=== PATIENT | male | born 1960 | race Caucasian/White ===

== ENCOUNTER 2023-02-14 09:37 | Observation (INO) ==
--- NOTE | 2023-02-08 09:09 | Anesthesiology Consultation ---
Date of Service February 08, 2023 Assessment & Plan (1) Encounter for pre-operative examination: Chart Review Chart Review: Acceptable Risk for Surgery and Patient NOT seen in Pre Admission Testing Consults Requested none History Surgery Operation Date: 02/14/23 11:30 Proposed Procedures p Left Unicompartment Knee Arthroplasty versus Left Total Knee Arthroplasty - Santo Krishnamurthy, Height/Weight Height: 6 ft Weight: 99.79 kg Allergies Allergy/AdvReac Type Severity Reaction Status Date / Time Sulfa (Sulfonamide AdvReac Mild Gastrointestinal Verified 02/08/23 07:54 Antibiotics) Upset Medications Home Medications Medication Instructions Recorded Confirmed Last Taken Zn-pyg cgyv-jvuzeq-ccp palmet 1 cap PO QAM 10/18/22 02/08/23 11/15/22 05:00 capsule atenolol 25 mg tablet 12.5 mg PO HS 10/18/22 02/08/23 12/05/22 21:00 atorvastatin 10 mg tablet (Lipitor) 10 mg PO HS 10/18/22 02/08/23 12/05/22 21:00 cetirizine 10 mg tablet (Zyrtec) 10 mg PO QAM 10/18/22 02/08/23 12/05/22 05:00 citalopram 20 mg tablet 20 mg PO HS 10/18/22 02/08/23 12/05/22 05:00 fluticasone propionate 50 2 spray intranasal DAILY PRN 10/18/22 02/08/23 Unknown mcg/actuation nasal Allergy Symptoms spray,suspension glucosamine-chondroitin 250 mg-200 2 tab PO QAM 10/18/22 02/08/23 11/15/22 05:00 mg tablet (Osteo Bi-Flex) Past Medical History Medical History BPH (benign prostatic hyperplasia) IgA deficiency Prediabetes HTN (hypertension) controlled, stable per pt Hyperlipidemia Depression GERD (gastroesophageal reflux disease) controlled, stable per ptt Hx of Lyme disease treated 10 yrs ago, denies complications, myalgias, arthralgias, fever, palpitations all resolved after treatment History of COVID-19 2020-flu like symptoms-denies hospitalization-resolved Exercise / Class Metabolic Activity II 4-5 Yardwork/Stairs/Walk up hill Past Family History Family History Other No family history of adverse response to anesthesia Past Surgical History Surgical History History of partial knee replacement right History of esophagogastroduodenoscopy (EGD) Hx of colonoscopy Hx of wisdom tooth extraction History of tonsillectomy and adenoidectomy History of bunionectomy of right great toe Hx of bilateral cataract extraction 12/06/22: Right uni knee: SAB with adductor and sedation. Past Anesthesia History No Hx of Anesthesia Complications and No Family Hx of Anesthesia Complications History of PONV No Hx of PONV and No Hx of Motion Sickness Social History Smoking Status: Former smoker tobacco type: cigarettes Smoking cigarettes per day: quit ~1990 Do You Dip or Chew Tobacco: No Smoking End Date: 1989 Hx Alcohol Use: Yes Alcohol type: beer and wine alcohol intake frequency: a few times a month Hx Substance Use: No substance use type: does not use Testing Laboratory Results Laboratory Tests 01/18/23 09:28 WBC 4.32 L Hgb 12.8 L Hct 38.3 L Plt Count 187 PT 11.7 INR 1.1 APTT 26.3 Sodium 139 Potassium 4.7 Chloride 107 Carbon Dioxide 28 BUN 19 Creatinine 0.97 Glucose 100 H Electrocardiogram Date: 10/26/22 DICTATED BY: Tk Malloy MD Test Reason : Blood Pressure : / mmHG Vent. Rate : 051 BPM Atrial Rate : 051 BPM P-R Int : 202 ms QRS Dur : 092 ms QT Int : 470 ms P-R-T Axes : 034 037 042 degrees QTc Int : 433 ms Sinus bradycardia Otherwise normal ECG When compared with ECG of 11-OCT-2012 06:55, No significant change was found Confirmed by Tk Malloy ([id number]) on 10/26/2022 4:06:57 PM
[~2023-02-14 09:37] MED LIST: ACETAMINOPHEN 500 MG TAB PO SCH; BUPIVACAINE 0.5 % 5 MG/1 ML PF 10ML VIAL ONE; FAMOTIDINE 20 MG TAB PO SCH; GABAPENTIN 600 MG DOSE PO SCH; LR 500ML BOLUS, THEN 15ML/HR IV SCH; LR 60ML/HR IV SCH; ORTHO JOINT MIX INFIL SCH; ROPIVACAINE 0.5% 5 MG/ML 30 ML VIAL ONE; TRANEXAMIC ACID 1,000 MG **IV Intra-op IV SCH; TRANEXAMIC ACID 1,000 MG **IV Pre-op IV SCH; ceFAZolin 2000MG 2,000 MG/15 ML SYR IV SCH; dexAMETHasone 4 MG TAB PO SCH
--- NOTE | 2023-02-14 10:16 | History & Physical Bridge Note ---
Date of Service February 14, 2023 History & Physical Bridge Note I have examined the patient, reviewed the History & Physical and in the interval since the performance of the History & Physical I have noted the following changes of clinical significance: no changes noted
[2023-02-14] MEDS ORDERED: ePHEDrine sulfate 50 MG/ML AMP IV PRN (10:50)
[2023-02-14] MEDS ORDERED: ATROPINE SULFATE 0.1 MG/ML 10ML SYR IV PRN (10:50)
[2023-02-14] MEDS ORDERED: fentaNYL citrate PF 100 MCG/2 ML VIAL IV PRN (10:50)
[2023-02-14] MEDS ORDERED: ONDANSETRON INJ 2 MG/ML 2 ML VIAL IV PRN ×2 (10:50→14:41)
[2023-02-14] MEDS ORDERED: ORTHO JOINT ANESTHETIC ONE (10:51)
[2023-02-14] MEDS ORDERED: PROPOFOL IV EMULSION 10 MG/ML 20 ML VIAL IV ONE (10:57)
[2023-02-14] MEDS ORDERED: fentaNYL citrate PF 100 MCG/2 ML VIAL ONE (10:57)
[2023-02-14] MEDS ORDERED: MIDAZOLAM HCL 1 MG/ML 2ML VIAL ONE ×3 (10:58→12:27)
--- OUTSIDE RECORDS SUMMARY | 2023-02-14 11:58 | External Medical Summary | Summary of Care ---
Author Name Unknown Organization [facility] Address [address] [place] [address] Phone [phone] Care Team Providers Care Pile Driver Name Role Phone Jose Reagan MD Primary Care Provider +1- [phone] Reason for Visit * Reason Comments eRx-Medication Refill Encounter Details Date Type Department Care Team (Late st Contact Info) Description 02/07/2023 Refill [facility] [place] [address] [place] [address] Jose Reagan MD [address] [place] [address] Chronic rhinitis Allergies Active Allergy Reactions Criticality Noted Date Comments Sulfa Antibiotics Nausea/vomiting,Othe r (Please comment) 11/25/2001 Nausea/Vomiting, fever documented as of this encounter (statuses as of 02/07/2023) Medications Medication Sig Dispensed Refills Start Date End Date Status SAW PALMETTO COMPLEX PO CAPSIndications:R outine medical exam USE DIRECTED 0 07/05/2011 Active AYR SALINE NASAL NETI RINSE 1.57 G NA PACKIndications:C hronic rhinitis use 1 packet a day as directed 1 Kit 3 04/04/2014 Active ZYRTEC ALLERGY 10 MG PO TABSIndications:C hronic rhinitis 1 TABLET DAILY 0 04/04/2014 Activ e Glucosamine Chond Complex/MSM Oral Tablet 0 09/10/2019 Active Atorvastatin Calcium 40 MG Oral Tablet (Lipitor)Indicati ons:Dyslipidemia Take by mouth 1 Tablet in the morning. 90 Tablet 3 12/28/2021 Active Montelukast Sodium 10 MG Oral Tablet (Singulair) Take 1 Tablet by mouth in the morning. 90 Tablet 3 04/02/2022 Active Atenolol 25 MG Oral Tablet (Tenormin) Take 1 Tablet by mouth in the morning. 90 Tablet 3 08/30/2022 Active Additional Information Patient taking differently: 12.5 mgOral Daily(AM), Reported on 11/01/2022 Citalopram Hydrobromide 20 MG Oral Tablet (CeleXA)Indicatio ns:Shakiness,Grie f reaction,Stress TAKE 1 TABLET EVERY MORNING 90 Tablet 3 11/24/2022 Active Omeprazole 20 MG Oral Capsule Delayed Release (PriLOSEC)Indicat ions:Gastroesopha geal reflux disease without esophagitis TAKE 1 CAPSULE EVERY MORNING 90 Capsule 3 12/15/2022 Active Fluticasone Propionate 50 MCG/ACT Nasal Suspension (Flonase)Indicati ons:Chronic rhinitis USE 2 SPRAYS IN EACH NOSTRIL IN THE MORNING 48 g 2 02/07/2023 Active Fluticasone Propionate 50 MCG/ACT Nasal Suspension (Flonase)Indicati ons:Chronic rhinitis Administer into each nostril 2 Sprays in the morning. 48 g 3 12/28/2021 02/08/20 23 Discontinued documented as of this encounter (statuses as of 02/07/2023) Active Problems Problem Noted Date Diagnosed Date HTN, goal below 130/80 11/01/2022 Prediabetes 07/22/2020 Overview: Per Prediabetes protocol History of Lyme disease 12/07/2019 IgA deficiency 07/28/2015 Vitiligo 08/22/2013 Chronic rhinitis 07/05/2012 Pulsatile tinnitus 07/05/2012 Dyslipidemia, goal LDL below 100 02/17/1996 documented as of this encounter (statuses as of 02/07/2023) Resolved Problems Problem Noted Date Diagnosed Date Resolved Date Preop examination 03/10/2017 03/10/2017 Shakiness 03/23/2016 03/10/2017 Grief reaction 03/23/2016 03/10/2017 Cutaneous skin tags 09/30/2014 03/10/20 17 Maria De Jesus nodes (DJD hand) 08/22/2013 BPH with obstruction/lower u rinary tract symptoms 08/22/2013 11/01/2022 Special screening for malign ant neoplasm of prostate 08/22/2013 04/04/2015 Overweight (BMI 25.0-29.9) 04/19/2013 1 05/11/2016 Overview: BMI= 27.44 04/19/13 Chest pain 10/17/2012 04/04/2015 Palpitations 10/11/2012 03/10/2017 Overweight with body mass in dex (BMI) 25.0-29.9 08/29/2012 03/10/2017 Overview: bmi= 27.11 08/29/12 Arthralgia of multiple joints 08/29/2012 12/05/2018 DJD (degenerative joint disease) 08/29/2012 09/30/2014 Dizziness 07/05/2012 09/30/2014 Routine medical exam 07/05/2012 017 Obstipation 01/05/2012 03/10/2017 Overweight (BMI 25.0-29.9) 07/05/2011 1 05/11/2016 Overview: bmi= 26.20 07/05/11 Special screening for malign ant neoplasm of prostate 07/05/2011 04/04/2015 Carcinoid syndrome 07/05/2011 6 Diverticulosis of colon 07/05/201111/13 Ventricular premature contractions 07/05/2011 03/10/2017 Palpitations 02/11/2011 07/05/2011 Carcinoid syndrome 02/01/2011 2 Abdominal pain, epigastric 01/28/2011 0 07/05/2011 Diverticulosis of colon 01/28/201106/13 Umbilical hernia 01/28/2011 09/30/2014 Ventricular premature contractions 01/20/2011 07/05/2011 Overweight, BMI 26.22 12/28/10 12/28/2010 03/10/2017 Acute serous otitis media 05/28/2010 07 / Special screening for malign ant neoplasms, colon 05/28/2010 09/30/2014 Screening for prostate cancer 05/28/2010 07/05/2011 Hearing loss 12/29/2009 09/30/2014 Chronic rhinitis 10/09/2009 09/30/2014 Dysfunction of eustachian tube 10/09/2009 09/30/2014 Otalgia 10/09/2009 09/30/2014 Pulsatile tinnitus 10/09/2009 5 Family history of malignant neoplasm of prostate 06/01/2007 09/30/2014 ADVANCE DIRECTIVE INFORMATION 01/28/2005 09/30/2014 Overview: INSTRUCTED PT TO BRING COPY IN FOR CHART Other seborrheic keratosis 06/12/2004 0 09/30/2014 BPH with obstruction/lower u rinary tract symptoms 06/12/2004 08/22/2013 Esophageal stricture 06/12/2004 015 Esophageal reflux 04/13/2002 01/05/2012 Dyslipidemia, goal to be determined 04/13/2002 06/04/2009 VITELIGO 04/13/2002 08/22/2013 SBE (subacute bacterial endo carditis) prophylaxis candidate 04/13/2002 01/28/2009 ROUTINE MEDICAL EXAM 04/13/2002 013 Screening for prostate cancer 04/13/2002 05/22/2008 Overview: Resolved per Screening Diagnosis Protocol #6 GANGLION, RIGHT PALMAR 08/01/200009/30 Palpitations 06/01/2007 Mitral valve disorder 2007 DISC DIS ELE-UAY-SAQW 2014 INFORMATION 06/12/2004 NONSPECIF SKIN ERUPT NEC 03/2004 LUMBAGO 09/30/2014 UNILAT INGUINAL HERNIA 09/30 Mitral valve regurgitation 0 09/30/2014 documented as of this encounter (statuses as of 02/07/2023) Immunizations Name Administration Dates Next Due COVID-19 mRNA, LNP-s, No Pre serve, 2-Dose Series (Moderna) 07/03/2020,05/29/2020 COVID-19, mRNA, LNP-s, PF, B ooster, 100mcg/0.5mg (Moderna) 02/18/2021 SEASONAL INFLUENZA, PF, 6 M & Above, IM , (FLULAVAL or FLUZONE) 01/27/2023,12/17/2021,12/08/2020,12/06,12/05/2018,02/03/2018,12/30/2016 Seasonal Influenza, Quadriva lent, No Preserve, IM 02/03/2016,01/16/2015 02/02/2017 Seasonal Influenza, Split, I IV3, With Preserve, Inj 02/25/2014,12/08/2012,12/07/2010,12/29,12/05/2008,03/06/2008,01/30/2007 TD, Preservative Free 12/08/2020 TDAP (age 11 and older)(Adacel) 01/05/2010 Zoster Vaccine Recombinant (Shingrix) 04/17/2019,12/05/2018 documented as of this encounter Social History Tobacco Use Types Packs/Day Years Used Date Smoking Tobacco: Former Cigarettes 1 10 Q uit: 02/16/1991 Passive Smoke Exposure: Never Smokeless Tobacco: Never Alcohol Use Standard Drinks/Week Comments Yes 0 (1 standard drink = 0.6 oz pure alcohol) 3-4 beers per weekend- cutting back, occ wine in evening PHQ-2 Answer Date Recorded PHQ-2 Score 0 12/07/2019 Hunger Vital Sign Answer Date Recorded Within the past 12 months, y ou worried that your food would run out before you got the money to buy more. Never true 08/27/19 23 Within the past 12 months, t he food you bought just didn't last and you didn't have money to get more. Never true 08/26/2022 Sex and Gender Information Value Date Recorded Sex Assigned at Male 12/05/2018 7:54 AM EDT Gender Identity Male 12/05/2018 7:54 AM EDT Sexual Orientation Straight 12/05/2018 7: 54 AM EDT Job Start Date Occupation Industry Not on file Not on file Not on file documented as of this encounter Miscellaneous Notes * Telephone Encounter - Alma Delia Whitt, [facility] - 02/07/2023 4:40 PM ESTSigned Prescriptions: Disp Refills Fluticasone Propionate 50 MCG/ACT Nasal Contreras*48 g 2 Sig: USE 2 SPRAYS IN EACH NOSTRIL IN THE MORNINGAuthorizing Provider: JOSE REAGAN User: ALMA DELIA WHITT documented in this encounter Plan of Treatment Upcoming Encounters Date Type Department Care Team (Late st Contact Info) Description 03/23/2023 7:40 AM EST Office Visit [facility] [address] [place] [address] Jose Reagan MD [address] [place] [address] Scheduled Procedures Name Priority Associated Diagnoses Date/Ti me COLONOSCOPY FLEXIBLE PROXIMAL DIAGNOSTIC Recall History of colon polyps Health Maintenance Due Date Last Done Comments HIV Screening 1973 Albumin/Creatinine Ratio 1976 Hepatitis C Screening 1976 Depression Screening 12/06/2020 12/07/2019, 10/01/19 15 COVID-19 Vaccine ( season) 2022 02/18/2021, 07/03/2020, 05/29/2020 GFR 05/13/2023 05/12/2022, 03/2020, 07/01/2020, Additional history exists HbA1c 05/13/2023 05/12/2022, 03/2020, 07/01/2020 COLONOSCOPY-EVERY 3 YRS AGES 18-100 07/10/2024 07/10/2021, 07/10/2021, 02/24/2011, Additional history exists Lipid Panel 05/13/2027 05/12/2022, 03/2020, 07/01/2020, Additional history exists DTaP,Tdap,and Td Vaccines (3 - Td or Tdap) 12/08/2030 12/08/2020, 01/05/2010, 07/29/2001, Additional history exists Zoster Vaccines Completed 04/17/2019, 12/05/2018 Colonoscopy Discontinued 07/10/2021, 06/13, 02/24/2011, Additional history exists Colorectal Cancer Screening Discontinued Influenza Vaccine (FLU shot) Completed 01/27/2023, 12/17/2021, 12/08/2020, Additional history exists Cologuard Discontinued Fecal Occult Blood Test Discontinued GARDASIL-HPV IMMUNIZATION SERIES Aged Out No longer eligible based on patient's age to complete this topic Hepatitis B Aged Out No longer eligi ble based on patient's age to complete this topic MENINGOCOCCAL (MENACTRA/MENVEO) Aged Out No longer eligible based on patient's age to complete this topic Pneumococcal Vaccine: Pediatrics (0 to 5 Years) and At-Risk Patients (6 to 64 Years) Aged Out No longer eligible based on patient's age to complete this topic Sigmoidoscopy Discontinued documented as of this encounter Medical Devices Implanted Type Area Boss Miner Device Identifier Shelf Expiration Date Model / Serial / Lot Lens Intraoc 16.5 - [id number] - [id number] Implanted:Qty: 1 on 03/22/2017 by Bandar Cedeño MD at OR [facility] Right: Eye BAUSCH & LOMB 05/11/2021 [id number] / [id number] / [id number] Lens Intraoc 16.5 - [id number] - [id number] Implanted:Qty: 1 on 03/29/2017 by Bandar Cedeño MD at OR [facility] Left: Eye BAUSCH & LOMB 07/11/2021 [id number] / [id number] / [id number] documented as of this encounter Visit Diagnoses Diagnosis Chronic rhinitis documented in this encounter Advance Directives Latest Code Status on File Code Status Date Activated Date Inactivated Comments Full Code 03/29/2017 9:22 AM 03/29/2017 3:55 PM This order reflects the patients wishes and were consensually agreed upon. Code Status History Code Status Date Activated Date Inactivated Comments Full Code 03/22/2017 6:23 AM 03/22/2017 12:51 PM This o rder reflects the patients wishes and were consensually agreed upon. Care Teams Pile Driver Relationship Specialty Start Date End Date Oesterling, Jose R, MD [address] [facility] [place] [address] PCP - General Family Medicine 08/03/17 documented as of this encounter
--- OUTSIDE RECORDS SUMMARY | 2023-02-14 11:58 | External Medical Summary | Summary of Care ---
Author Name Unknown Organization [facility] Address [address] [place] [address] Phone [phone] Care Team Providers Care Pinion And Wheel Truer Name Role Phone Jose Velasquez MD Primary Care Provider +1- [phone] Reason for Visit * Reason Onset Date Comments Medication Administration 01/27/2023 Flu an d/or Pneumo Inj Encounter Details Date Type Department Care Team (Late st Contact Info) Description 01/27/2023 9:00 AM EST Immunization Ancillary [facility] [address] [place] [address] [place], Flu [facility] [address] [place] [address] Need for prophylactic vaccination and inoculation against influenza* Allergies Active Allergy Reactions Criticality Noted Date Comments Sulfa Antibiotics Nausea/vomiting,Othe r (Please comment) 11/25/2001 Nausea/Vomiting, fever documented as of this encounter (statuses as of 01/27/2023) Medications Medication Sig Dispensed Refills Start Date End Date Status SAW PALMETTO COMPLEX PO CAPSIndications:Rou jovanni medical exam USE DIRECTED 0 07/05/2011 Ac tive AYR SALINE NASAL NETI RINSE 1.57 G NA PACKIndications:Chr onic rhinitis use 1 packet a day as directed 1 Kit 3 04/04/2014 Active ZYRTEC ALLERGY 10 MG PO TABSIndications:Chr onic rhinitis 1 TABLET DAILY 0 04/04/2014 Active Glucosamine Chond Complex/MSM Oral Tablet 0 09/10/2019 Active Fluticasone Propionate 50 MCG/ACT Nasal Suspension (Flonase)Indication s:Chronic rhinitis Administer into each nostril 2 Sprays in the morning. 48 g 3 12/28/2021 Active Atorvastatin Calcium 40 MG Oral Tablet (Lipitor)Indication s:Dyslipidemia Take by mouth 1 Tablet in the [...] 11/01/2022 Citalopram Hydrobromide 20 MG Oral Tablet (CeleXA)Indications :Shakiness,Grief reaction,Stress TAKE 1 TABLET EVERY MORNING 90 Tablet 3 11/24/2022 Active Omeprazole 20 MG Oral Capsule Delayed Release (PriLOSEC)Indicatio ns:Gastroesophageal reflux disease without esophagitis TAKE 1 CAPSULE EVERY MORNING 90 Capsule 3 12/15/2022 Active documented as of this encounter (statuses as of 01/27/2023) Active Problems Problem Noted Date Diagnosed Date HTN, goal below 130/80 11/01/2022 Prediabetes 07/22/2020 Overview: Per Prediabetes protocol History of Lyme disease 12/07/2019 IgA deficiency 07/28/2015 Vitiligo 08/22/2013 Chronic rhinitis 07/05/2012 Pulsatile tinnitus 07/05/2012 Dyslipidemia, goal LDL below 100 02/17/1996 documented as of this encounter (statuses as of 01/27/2023) Resolved Problems Problem Noted Date Diagnosed Date [...] 12/28/2010 03/10/2017 Acute serous otitis media 05/28/2010 Special screening for malign ant neoplasms, colon [...] 06/01/2007 Mitral valve disorder 2007 DISC DIS XXI-QDH-KNSG 2014 INFORMATION 06/12/2004 NONSPECIF SKIN ERUPT NEC 03/2004 LUMBAGO 09/30/2014 UNILAT INGUINAL HERNIA 09/30 Mitral valve regurgitation 0 09/30/2014 documented as of this encounter (statuses as of 01/27/2023) Immunizations Name Administration Dates Next Due COVID-19 [...] on file documented as of this encounter Patient Instructions * Patient Instructions* Michael Jean RN - 01/27/2023 9:03 AM EST ~~PATIENT INSTRUCTIONS FOR FLU SHOT~~ Possible side effects of influenza vaccine, (flu shot), are usually mild and include: 1. Soreness or redness at injection site 2. Low grade fever 3. Body aches You may use Tylenol/Acetaminophen as needed for these symptoms. LET YOUR DOCTOR KNOW IMMEDIATELY IF YOU HAVE DIFFICULTY BREATHING OR SWALLOWING, EXPERIENCE ITCHINGOF FEET OR HANDS, HAVE SWELLING OF EYES, FACE OR INSIDE OF NOSE. documented in this encounter Progress Notes * Michael Jean RN - 01/27/2023 9:03 AM EST PRE - ADMINISTRATION DOCUMENTATION Are you experiencing any cold symptoms or fever? No Have you had Guillain-Dixmont Syndrome (an illness that causes paralysis) within the last 6 weeks? No Have you had the flu shot in the past? YES Have you ever had a reaction to the flu shot? No Michael Jean RN, 01/27/2023 9:03 AM Immunization Administration Documentation Time Out Procedure Performed: Yes Patient Identified (Ask Name/Date of ): Yes Does the patient have a fever greater than 101 degrees today? No Patient allergic to latex? No VFC Stock: No Immunization(s) verified: Yes, Immunization Name: Flu, VIS Sheet(s) given: Yes Verified Side and Site: Yes Verified Shot(s) with Parent(s)/Patient: Yes documented in this encounter Plan of Treatment Upcoming Encounters Date Type Department Care Team (Late st Contact Info) Description 03/23/2023 7:40 AM EST Office Visit [facility] [address] [place] [address] Jose Velasquez MD [address] [place] [address] Scheduled Procedures Name Priority Associated Diagnoses Date/Ti [...] this encounter Medical Devices Implanted Type Area Director Of Philanthropy Device Identifier Shelf Expiration Date Model / Serial / Lot Lens Intraoc 16.5 - [id number] - [id number] Implanted:Qty: 1 on 03/22/2017 by Bandar Cedeño MD at OR [facility] Right: Eye BAUSCH [employer] LOMB 05/11/2021 [id number] / [id number] / [id number] Lens Intraoc 16.5 - [id number] - [id number] Implanted:Qty: 1 on 03/29/2017 by Bandar Cedeño MD at OR [facility] Left: Eye BAUSCH & LOMB 07/11/2021 [id number] / [id number] / [id number] documented as of this encounter Visit Diagnoses Diagnosis Need for prophylactic vaccination and inoculation against influenza- Primary documented in this encounter Advance Directives Latest [...] and were consensually agreed upon. Care Teams Pinion And Wheel Truer Relationship Specialty Start Date End Date Jose Velasquez MD [address] [place] [address] PCP - General Family Medicine 08/03/17 documented as of this encounter
--- NOTE | 2023-02-14 12:46 | Operative Report ---
PG Post Operative Report Pre & Post Diagnosis Operation Date: 02/14/23 11:15 Pre-Op Diagnosis: Left Knee Osteoarthritis Post-Op Diagnosis: Left Knee Osteoarthritis I identified the patient and participated in the time-out.: Yes Procedure Operation Date: 02/14/23 11:15 Actual Procedures p Left Unicompartmental Knee Arthroplasty (Left) - Santo Krishnamurthy DO Surgeon Santo Krishnamurthy DO Finishing Trimmer Santo Diego PA-C and Matheus Donovan PA-C Estimated Blood Loss 30 Findings Consistent with Post-Op Diagnosis Specimens Left femoral tibial bone Description of Procedure Implants used: I used a Amarilis persona unicompartmental knee arthroplasty with a size 6 femoral component, a size F tibial component, and a size 8 polyethylene insert. All components were cemented with Biomet cement. On February Wali arrived at [facility] for the above procedure. He was seen in the preoperative holding area and the operative extremity was identified and signed. He was given a preoperative antibiotic and a spinal anesthetic. He was taken back the operating room and laid on the table in supine position. He was given basic sedation. The left knee was prepped and draped in sterile fashion. A timeout was done. The patient and the operative extremity was properly identified. A longitudinal incision was made directly over the patella. Dissection was taken down through the fascia. A small midvastus arthrotomy was used. A small portion of the fat pad was excised and the medial retinaculum was released. The knee was then flexed. There was no arthritis in the patellofemoral joint or the lateral compartment. The ACL was intact. There was severe osteoarthritis in the medial compartment. A decision was made to proceed with a partial knee replacement. An external tibial guide was placed. 4 mm was resected off the tibial plateau. The knee was then brought to full extension. A distal femoral cutting block was placed. The distal femur was then resected. The knee was then flexed. A size 6 cutting block seem to be the best fit. This cutting block was then pinned into place. 2 drill holes were made. Posterior and chamfer cuts were made. The cutting block was then removed. The medial meniscus was then removed. The proximal tibia was exposed. The tibia measured to be a size F. The tibial keel was then punched and 2 drill holes were placed. The trial femoral component was then impacted in the place. A size 8 mm polyethylene insert was then trialed. The knee was brought through full range of motion and felt to be stable. All trial components were then removed. The final size F tibial component, the size 6 femoral component were cemented into place with Palacos cement. Once cement had dried, several different polyethylene inserts were trialed and a size 8 seem to get the best fit. The final size 8 implant was then snapped into place. The knee was brought through full range of motion and felt to be stable. The surrounding soft tissues were injected with 60 cc of an orthopedic pain control cocktail. The tourniquet was deflated. Hemostasis was obtained. The midvastus arthrotomy was closed with #1 Vicryl suture. Skin was closed with 2-0 Vicryl, 3 oh V-Loc suture, and justin. He was then placed in a soft compressive dressing. He was then transferred to a hospital bed. He was taken to the postanesthesia care unit in stable condition. He tolerated the procedure well. Santo Keller PA-C and Matheus Donovan PA-C were present for the entire procedure. They were critical for patient positioning, prepping, draping, retraction exposure, wound closure and application of sterile dressing. I attest to the content of the Intraoperative Record and any orders documented therein. Any exceptions are noted below.
[2023-02-14] MEDS ORDERED: ePHEDrine sulfate 50 MG/5 ML SYR ONE (12:50)
--- NOTE | 2023-02-14 13:27 | Anesthesiology Progress Note ---
Date of Service February 14, 2023 Anesthesia Post Procedure Vital Signs Vital Signs: Temp Pulse Pulse Resp BP BP Pulse Ox 02/14/23 13:20 61 13 139/81 94 02/14/23 13:10 60 14 144/79 H 98 02/14/23 13:00 97.9 F 66 16 131/72 99 02/14/23 10:11 98.1 F 58 L 20 142/79 H 95 O2 Del Method O2 Flow Rate 02/14/23 13:20 Oxymask 4 02/14/23 13:10 Oxymask 4 02/14/23 13:00 Oxymask 6 02/14/23 10:11 Room Air Transfer of Care Handoff Completed per policy Notes Mental Status: alert / awake / arousable and participated in evaluation Patient Amnestic to Procedure: Yes Nausea / Vomiting: adequately controlled Pain: adequately controlled Airway Patency, RR, SpO2: stable & adequate BP & HR: stable & adequate Hydration State: stable & adequate Neuraxial Anesthesia: was administered and sensory block is resolving Anesthetic Complications: no major complications apparent and Pt Satisfied with anesthetic care
--- NOTE | 2023-02-14 13:45 | XRay Report ---
XR knee LT 1 or 2V routine CLINICAL HISTORY: Surgical Post Op COMPARISON STUDY: None. FINDINGS: Status post a left knee medial unicondylar prosthesis. The hardware appears intact. No frac ture or dislocation. Skin justin are in place. IMPRESSION: Status post a left knee medial unicondylar prosthesis. No evidence for hardware complica tion. ACT 112: Negative or not required by law. Electronically signed by: Matthew Walters M.D. 02/14/2023 1:44 PM
[2023-02-14] MEDS ORDERED: bisacodyL 10 MG SUPP PR PRN (14:41)
[2023-02-14] MEDS ORDERED: SODIUM CHLORIDE 0.9% 1,000 ML IV SCH (14:41)
[2023-02-14] MEDS ORDERED: oxyCODONE HCL IR 5 MG TAB (IMMEDIATE RELEASE) PO PRN (14:41)
[2023-02-14] MEDS ORDERED: traMADol HCL 50 MG TABLET PO PRN (14:41)
[2023-02-14] MEDS ORDERED: HYDROmorphone INJ 0.5 MG/0.5 ML SYR IV PRN (14:41)
[2023-02-14] MEDS ORDERED: MAGNESIUM HYDROXIDE SUSP 30 ML UDC PO PRN (14:41)
[2023-02-14] MEDS ORDERED: METOCLOPRAMIDE HCL INJ 5 MG/ML 2 ML VIAL IV PRN (14:41)
[2023-02-14] MEDS ORDERED: NALOXONE HCL 0.4 MG/1 ML VIAL/CARP IV PRN (14:41)
[2023-02-14] MEDS: ACETAMINOPHEN 500 MG TAB PO SCH ×2 (15:12→22:30)
[2023-02-14] MEDS: KETOROLAC TROMETHAMINE 15 MG/ML VIAL IV SCH (18:02)
[2023-02-14] MEDS: ceFAZolin 1000MG 1,000 MG/7.5 ML SYR IV SCH (18:02)
[2023-02-14] MEDS: ASPIRIN 81 MG ECTAB PO SCH (20:48)
[2023-02-14] MEDS: DOCUSATE SODIUM 100 MG CAP PO SCH (20:48)
[2023-02-14] MEDS ORDERED: SENNA 8.6 MG TAB PO SCH (21:00)
[2023-02-14] MEDS ORDERED: ATORVASTATIN 10 MG TAB PO SCH (21:00)
[2023-02-14] MEDS ORDERED: CITALOPRAM 20 MG TAB PO SCH (21:00)
[2023-02-14] MEDS ORDERED: ATENOLOL 25 MG TABLET PO SCH (21:00)
[2023-02-15] MEDS: KETOROLAC TROMETHAMINE 15 MG/ML VIAL IV SCH ×3 (00:57→11:20)
[2023-02-15] MEDS: ceFAZolin 1000MG 1,000 MG/7.5 ML SYR IV SCH (00:58)
[2023-02-15] MEDS: ACETAMINOPHEN 500 MG TAB PO SCH (05:41)
[2023-02-15] MEDS ORDERED: dexAMETHasone 4 MG TAB PO SCH (08:00)
[2023-02-15] MEDS: DOCUSATE SODIUM 100 MG CAP PO SCH (08:27)
[2023-02-15] MEDS: ASPIRIN 81 MG ECTAB PO SCH (08:28)
[2023-02-15] MEDS ORDERED: MULTIVITAMIN TAB PO SCH (09:00)
--- NOTE | 2023-02-15 09:00 | Orthopedic Progress Note ---
Date of Service February 15, 2023 Assessment & Plan (1) Status post left partial knee replacement: Overall he is doing quite well today with good pain control to the left knee. He will be seen by physical therapy today to work on ambulation and range of motion exercises. He is on aspirin for DVT prophylaxis. He can be discharged home later today. He will follow-up with orthopedics in 2 weeks for postoperative care. Subjective . Wali was seen and evaluated today on rounds resting comfortably in no apparent distress. He notes that his pain is well-controlled to the left knee. He has been up and ambulating to the restroom. He denies any other concerns today. Review of Systems All systems reviewed & are unremarkable except as noted in HPI & below. Physical Exam . On physical examination of the left knee shows dressings are clean, dry, and intact. His leg is out in full extension. He has active plantarflexion and dorsiflexion of the left ankle. +2 DP and PT pulses. Less than 2-second capillary refill. Normal sensation. Neurovascular intact. Results & Data Results & Data Laboratory Results . Diagnostic Findings . Postoperative x-rays of the left knee reveal prosthesis to be in anatomical alignment with no evidence of fracture complication or loosening. PG Care Time/CCT Total # of Minutes Spent Total Time Spent with Patient: Total time spent is greater than 50% in coordination of care (as documented) at patient's floor/unit and/or counseling patient: Coding Level of Care Code 54547 Post Operative Follow-Up Diagnoses Status post left partial knee replacement Z96.652
--- NOTE | 2023-02-15 09:02 | Discharge Summary ---
Date of Service February 15, 2023 Principal Diagnosis Same as "Discharge Diagnosis" noted below under Discharge Instructions. Discharge Exam . On physical examination of the left knee shows dressings are clean, dry, and intact. His leg is out in full extension. He has active plantarflexion and dorsiflexion of the left ankle. +2 DP and PT pulses. Less than 2-second capillary refill. Normal sensation. Neurovascular intact. Discharge Data Procedures Performed Operation Date: 02/14/23 11:15 Actual Procedures p Left Unicompartmental Knee Arthroplasty (Left) - Santo Krishnamurthy DO Ordered Studies 02/14/23 05:00 US - OR guided needle placemen Routine Hospital Course (1) Status post left partial knee replacement: On February 14, 2023 Wali arrived at [facility] and underwent a left unicompartmental knee replacement without complications. He had a spinal anesthetic. Postoperatively, he was started on aspirin for DVT prophylaxis and transferred to the general orthopedic floor in stable condition. His hospital course was uneventful. On postoperative day #1, his vital signs are stable and his pain was well-controlled. He participated well with physical therapy working on ambulation and range of motion exercises. He was discharged home in stable condition. He will follow-up with orthopedics in 2 weeks for postoperative care. PG Care Time/CCT Total # of Minutes Spent Total Time Spent with Patient: Total time spent is greater than 50% in coordination of care (as documented) at patient's floor/unit and/or counseling patient: Discharge Plan Discharge Items Patient Disposition: Home - Home Health Services Reason For Visit: POST OP Discharge Diagnosis: Left partial knee replacement Activity: Resume your previous activity Non-emergency contact: Surgeon Call non-emergency contact if: your wound has increased redness and your wound has increased drainage Follow-up/Referrals: Jose Velasquez MD [Primary Care Provider] - Diet: Regular Addtl Attending Provider Instructions: Activity and Therapy Recommendations: * If you are using [facility] then therapy will be provided at your home until they feel you have accomplished all of your goals. * If you are using [facility] then Physical Therapy will be provided until they feel you are ready to start Outpatient Physical Therapy. * If you are not using home therapy then Outpatient Physical Therapy should start about 3-5 days from your day of surgery. Therapy will last about 6-10 weeks * It is important not to put a pillow under your knee when you are relaxing or sleeping. It is just as important to make sure you are getting your knee perfectly straight as it is to regain your knee bend. * You were shown a series of exercises in the hospital. Do these exercises three times each day including the exercises you were shown in physical therapy. * Get up and walk several times each day. For the first four weeks, try not to stand or walk for more than one hour at a time. If you do stand or walk for more than one hour, you will not hurt anything, but your leg will likely sw ell. * As you feel comfortable, you may change from the walker or crutches to a cane and then to independent walking. Medications: * Narcotic You will likely be sent home from the hospital with a prescription for the narcotic pain medication that worked best throughout your stay. * Cefadroxil -take the antibiotic twice a day for 10 days to help prevent infection. * Aspirin Most patients will be required to take Aspirin 81mg twice a day for 6 weeks after surgery. This is obtained [id number] and a prescription is not necessary. * Other medications may be prescribed for specific circumstances. If you have any questions, please call the office at . * Resume previous home medications unless otherwise instructed TEDs/Elastic Stockings: The white elastic stockings help limit swelling and prevent blood clots from forming in your legs.~ The more you wear them, the more they work. Wear them for six weeks. Dressing Care: The dressing can be changed after physical therapy on postop day #1. Daily dry dressing changes for a few days, especially if the incision is still draining some. If the incision is not draining then you may leave the justin open to air. If there is a little bit of drainage or if the justin are getting stuck on your clothing then cover the incision with a dry dressing. The justin will be removed at your 2 week follow-up appointment. Showering: You may shower 5 days from the day of surgery as long as the incision is no longer draining. You may shower with the justin exposed. Let soapy water run over the justin and pat them dry. Do not scrub or soak the incision. Things To Watch For: * Drainage from the incision site that occurs more than one week after your surgery. * Increased redness at the incision site. * Fever above 102 degrees Fahrenheit. * Unusual chest pain or shortness of breath. * Call [facility] at with any of the above problems Follow-Up Visit: Follow-up with Dr. Krishnamurthy's PA (Santo Keller) 2-3 weeks after your day of surgery. He will remove your justin and answer any questions. If you have any additional questions or concerns, Dr Krishnamurthy is usually in the office at the same time and will be available An appointment was probably scheduled when you signed-up for surgery in the office. If you have any questions call Office Instructions: More detailed instructions as well as Frequently Asked Questions were provided in a folder by our office when you signed-up for surgery. Please review these instructions when you get home. If you have any further questions or concerns, please feel free to call the office at [phone] Pending Studies at Discharge: No Stand-Alone Forms: [facility] Medications and DC Order Prescriptions: New aspirin 81 mg Tablet,Delayed Release (Dr/Ec) 81 mg PO BID 42 Days Qty: 84 0RF oxycodone 5 mg Tablet 5 - 10 mg PO Q6 PRN (Reason: pain) Qty: 30 0RF cefadroxil 500 mg capsule 500 mg PO BID 10 Days Qty: 20 0RF Continued citalopram 20 mg Tablet 20 mg PO HS glucosamine-chondroitin [Osteo Bi-Flex] 250-200 mg Tablet 2 tab PO QAM Rx Instructions: give after food/meal cetirizine [Zyrtec] 10 mg Tablet 10 mg PO QAM atorvastatin [Lipitor] 10 mg Tablet 10 mg PO HS atenolol 25 mg Tablet 12.5 mg PO HS Zn-pyg [id number] palmet Capsule 1 cap PO QAM fluticasone propionate 50 mcg/actuation [place],Suspension 2 spray INTRANASAL DAILY PRN (Reason: Allergy Symptoms) Rx Instructions: administer into each nostril Admission Data Admit Date/Time: 02/14/23 12:48 Attending Provider: Santo Krishnamurthy Admit Provider: Santo Krishnamurthy Primary Care Provider: Jose Velasquez
== END 2023-02-15 11:32 | disposition home health service (06) ==
LOC: ASU 09:37 → 3E 09:37